=== PATIENT | male | born 1980 | race Caucasian/White ===

== ENCOUNTER → 2021-10-25 | Outpatient (CLI) | payer OTHER | LOC: LAB 10-23 16:21 | PROVIDERS: ATTEND Internal Medicine Pulmonary Disease | DX: R50.9 Fever, unspecified (principal); R09.81 Nasal congestion; R53.81 Other malaise; Z20.822 Contact with and (suspected) exposure to COVID-19 | CPT/HCPCS: C9803; U0003 ==